=== PATIENT | female | born 1975 | race Hispanic/Latino ===

== ENCOUNTER 2023-01-02 16:13 | Emergency (ER) | payer BC, OTHER ==
--- OUTSIDE RECORDS SUMMARY | 2023-01-02 16:18 | XMS REPORT | Continuity of Care Document ---
:[address] [facility] t Address [address] [place] [address] Care Team Providers Name Role Phone Yanely Lopez Primary Care Physician Yanely Lopez Attending Clinician Unavailable DEV HAMILTON Attending Clinician Unavailable Doctor Unassigned, [place] Attending Clinician Unavailable Dev Hamilton MD Attending Clinician DANIEL DAMICO Attending Clinician Unavailable Daniel Damico MD Attending Clinician Unknown, Attending Attending Clinician Unavailable Arlen Hillman Attending Clinician Unavailable POLO PERALTA Attending Clinician Unavailable Provider, [facility] Attending Clinician Unavailable Polo Chan Attending Clinician Arlen Hillman Admitting Clinician Unavailable Payers Payer Name Policy Type Policy Number Effective Date Expiration Date S [place] Blue Cross 6 [id number] 2020 Common Spiri t Blue Shield of 00:00:00 [facility] Problems Condition Condition Condition Status Onset Resolution Last Treating Co mments Source Name Details Category Date Date Treatment Clinician Date No known No known Disease Unive rs active active ity of problems problems [facility] [id number] Routine Problem Commo n adult [facility] health - [facility] maintenanc [facility] [id number] Mixed Problem Common hyperlipid [facility] emia [facility] [id number] Uncontroll Problem Co mmon ed type 2 Spirit diabetes - [facility] mellitus [facility] hyperglyce [facility] Vitamin D Vitamin D Problem Com mon deficiency deficiency Sp melissa [facility] Morbid Morbid Problem Common obesity obesity [facility] Polycystic Polycystic Problem C ommon ovary ovary [facility] syndrome syndrome - [facility] Hypothyroi Hypothyroi Problem C ommon dism dism [facility] [id number] Back Problem Common strain, [facility] initial - [facility] encounter [facility] [id number] Dense Problem Common breast [facility] tissue on [facility] mammogram [facility] [id number] Vaginal Problem Commo n bleeding [facility] [id number] Irregular Problem Comm on menstrual Spirit bleeding - [facility] [id number] Symptomati Problem C ommon 101 c Spirit abdominal - [facility]I apron [facility] [id number] COVID-19 Problem Comm on [facility] [id number] Strain of Problem Com mon muscle, Spirit fascia and - [facility]I tendon of [facility] back, Medical initial Center encounter Type II Diabetes Problem Common diabetes mellitus Spirit mellitus type 2, - CHI well controlled [facility] [id number] Strain of Problem Comm on thoracic [facility] back - [facility] region [facility] [id number] Umbilical Problem Com mon hernia [facility] without - [facility]I obstructio [facility] without Medical gangrene Center Hypertrigl Hypertrigl Problem C ommon yceridemia yceridemia Sp melissa [facility] [id number] BMI Problem Common 40.0-44.9, Spirit adult - CHI [facility] [id number] Surveillan Problem Comm on ce for Spirit - [facility]I control, [facility] contracept Medica l [place] Allergies, Adverse Reactions, Alerts Allergy Allergy Status Severity Reaction(s) Onset Inactive Treating Comm ents Source Name Type Date Date Clinician No Known DA Active U 2019-12 [facility]ie 1[facility] [place] [facility] No Known DA Active U 2019-12 [facility] Allergie 1-29 [place] No Known DA Active U 2007- [facility] Contrast 8- [place] Allergie 00:00: d s 00 [facility] No Known DA Active U 2007-0 [facility] Drug 8- [place] Allergie 00:00: d s 00 [facility] No Known DA Active U 2007-0 [facility] Food 8- [place] Allergie 00:00: d s 00 [facility] No Known DA Active U 2007-0 [facility] Other 8- [place] Allergie 00:00: d s 00 [facility] No Known DA Active U 2007- [facility] Drug 2-05 [place] Intolera 00:00: d nces 00 Medical Center NO KNOWN Drug Active Univers ALLERGIE Class ity of S [facility] Social History Social Habit Start Date Stop Date Quantity Comments Source History of Common Spirit - Tobacco Use [facility] Sex Assigned At Common Sp melissa - [facility] Exposure to 2022-09-09 2022-09-19 Not sure University SARS-CoV-2 00:00:00 16:38:00 [facility] (event) Branch Alcohol intake 2022-09-19 2022-09-19 Current University 00:00:00 00:00:00 non-drinker of [facility] alcohol (finding) Branch Tobacco use and 2020-10-17 2020-10-17 Smokeless tobacco Un iversity of exposure 00:00:00 00:00:00 non-user [facility] Smoking Status Start Date Stop Date Source Never Smoker [facility] Medications Ordered Filled Start Stop Current Ordering Indication Dosage Frequency Signature Comments Components Source Medication Medication Date Date Medication? Clinician (SIG) Name Name Glimepiride Glimepiride 2021-12 No 1{table QD Glimepirid 4 MG 4 MG 0-26 t_with_ e 4 MG 00:00: break st_or_t he_firs t_main_ meal_of _the_da y} metFORMIN metFORMIN 2021-12 No 2{table BID metFORMIN HCl ER 500 HCl ER 500 0-26 t_with_ HCl ER 500 MG MG 00:00: evening MG 00 _meal} METFORMIN 2022-1 Yes 2 tabs by Uni vers 500 MG ORAL 0-19 mouth ity of TAB 16:57: twice [place] 15 daily Medical Branch GLIPIZIDE 2021-12 Yes once daily Un jessika ORAL 0-19 ity of 16:57: [place] 15 [facility] sitagliptin 2021-12 Yes 1 tablet Un jessika phos/metfor 0-19 with ity of min HCl 16:57: evening [place] (JANUMET XR 15 meal Medical ORAL) Branch insulin NPH 2021-12 Yes 40 units Un jessika and regular 0-19 ity of human 70-30 16:57: [place] (NOVOLIN 15 Medical 70/30 U-100 [place] INSULIN) 100 unit/mL (70-30) injection levothyroxi 2021-12 Yes TAKE 1 Univ ers ne 150 mcg 0-19 TABLET BY ity of tablet 16:57: MOUTH [place] 15 EVERY DAY Medical IN THE [place] MORNING FOR 90 DAYS METFORMIN 2021-12 Yes 2 tabs by Uni vers 500 MG ORAL 0-19 mouth ity of TAB 16:57: twice [place] 15 daily Medical Branch GLIPIZIDE 2021-12 Yes once daily Un jessika ORAL 0-19 ity of 16:57: [address] sitagliptin 2021-12 Yes 1 tablet Un jessika phos/metfor 0-19 with ity of min HCl 16:57: evening [place] (JANUMET XR 15 meal Medical ORAL) Branch insulin NPH 2021-12 Yes 40 units Un jessika and regular 0-19 ity of human 70-30 16:57: [place] (NOVOLIN 15 Medical 70/30 U-100 [place] INSULIN) 100 unit/mL (70-30) injection levothyroxi 2021-12 Yes TAKE 1 Univ ers ne 150 mcg 0-19 TABLET BY ity of tablet 16:57: MOUTH [place] 15 EVERY DAY Medical IN THE [place] MORNING FOR 90 DAYS METFORMIN 2021-12 Yes 2 tabs by Uni vers 500 MG ORAL 0-19 mouth ity of TAB 16:57: twice [place] 15 daily Medical Branch GLIPIZIDE 2021-12 Yes once daily Un jessika ORAL 0-19 ity of 16:57: [address] sitagliptin 2021-12 Yes 1 tablet Un jessika phos/metfor 0-19 with ity of min HCl 16:57: evening [place] (JANUMET XR 15 meal Medical ORAL) Branch insulin NPH 2021-12 Yes 40 units Un jessika and regular 0-19 ity of human 70-30 16:57: [place] (NOVOLIN 15 Medical 70/30 U-100 Branch INSULIN) 100 unit/mL (70-30) injection levothyroxi 2021-12 Yes TAKE 1 Univ ers ne 150 mcg 0-19 TABLET BY ity of tablet 16:57: MOUTH [place] 15 EVERY DAY Medical IN THE Branch MORNING FOR 90 DAYS METFORMIN 2021-12 Yes 2 tabs by Uni vers 500 MG ORAL 0-19 mouth ity of TAB 16:57: twice [place] 15 daily Medical Branch GLIPIZIDE 2021-12 Yes once daily Un jessika ORAL 0-19 ity of 16:57: [place] 15 Medical Branch sitagliptin 2021-12 Yes 1 tablet Un jessika phos/metfor 0-19 with ity of min HCl 16:57: evening [place] (JANUMET XR 15 meal Medical ORAL) Branch insulin NPH 2021-12 Yes 40 units Un jessika and regular 0-19 ity of human 70-30 16:57: [place] (NOVOLIN 15 Medical 70/30 U-100 [place] INSULIN) 100 unit/mL (70-30) injection levothyroxi 2021-12 Yes TAKE 1 Univ ers ne 150 mcg 0-19 TABLET BY ity of tablet 16:57: MOUTH [place] 15 EVERY DAY Medical IN THE [place] MORNING FOR 90 DAYS ibuprofen 2021-12 Yes [id number] 600mg Take 1 U nivers 600 mg 0-19 tablet by ity of tablet 00:00: mouth [place] 00 every 6 Medical (six) Branch hours as needed for Pain (scale 4-6) or Pain (scale 1-3). ibuprofen 2021-12 Yes [id number] 600mg Take 1 U nivers 600 mg 0-19 tablet by ity of tablet 00:00: mouth [place] 00 every 6 Medical (six) Branch hours as needed for Pain (scale 4-6) or Pain (scale 1-3). ibuprofen 2021-12 Yes [id number] 600mg Take 1 U nivers 600 mg 0-19 tablet by ity of tablet 00:00: mouth [place] 00 every 6 Medical (six) Branch hours as needed for Pain (scale 4-6) or Pain (scale 1-3). ibuprofen 2021-12 Yes [id number] 600mg Take 1 U nivers 600 mg 0-19 tablet by ity of tablet 00:00: mouth [place] 00 every 6 Medical (six) Branch hours as needed for Pain (scale 4-6) or Pain (scale 1-3). clindamycin 2021-12- No [id number] 300mg Take 1 Univers 300 mg 0-19 10-30 capsule by ity of capsule 00:00: 04:59 mouth 4 [place] 00 :00 (four) Medical times Branch daily for 10 days. traMADoL 50 2021-12- No [id number] 50mg Take 1 Uni vers mg tablet 0-19 10-27 tablet by ity of 00:00: 04:59 mouth [place] 00 :00 every 6 Medical (six) Branch hours as needed for Pain (scale 7-10) for up to 7 days. Indication s: acute pain fenofibrate Yes TAKE 1 Univ ers 145 mg 7-28 TABLET BY ity of tablet 00:00: MOUTH [place] 00 EVERY DAY Medical FOR 90 Branch DAYS fenofibrate Yes TAKE 1 Univ ers 145 mg 7-28 TABLET BY ity of tablet 00:00: MOUTH [place] 00 EVERY DAY Medical FOR 90 Branch DAYS fenofibrate 0 Yes TAKE 1 Univ ers 145 mg 7-28 TABLET BY ity of tablet 00:00: MOUTH [place] 00 EVERY DAY Medical FOR 90 Branch DAYS fenofibrate 0 Yes TAKE 1 Univ ers 145 mg 7-28 TABLET BY ity of tablet 00:00: MOUTH [place] 00 EVERY DAY Medical FOR 90 Branch DAYS TRULICITY 3 Yes ONE Univer s mg/0.5 mL 7-25 INJECTION ity o f PnIj 00:00: ONCE A [place] WEEK Medical SUBCUTANEO Branch USLY ONCE A WEEK SUBCUTANEO US 30 DAYS TRULICITY 3 Yes ONE Univer s mg/0.5 mL 7-25 INJECTION ity o f PnIj 00:00: ONCE A [place] WEEK Medical SUBCUTANEO Branch USLY ONCE A WEEK SUBCUTANEO US 30 DAYS TRULICITY 3 2021- Yes ONE Univer s mg/0.5 mL 7-25 INJECTION ity o f PnIj 00:00: ONCE A [place] WEEK Medical SUBCUTANEO Branch USLY ONCE A WEEK SUBCUTANEO US 30 DAYS TRULICITY 3 Yes ONE Univer s mg/0.5 mL 7-25 INJECTION ity o f PnIj 00:00: ONCE A [place] 00 WEEK Medical SUBCUTANEO Branch USLY ONCE A WEEK SUBCUTANEO US 30 DAYS Fluconazole Fluconazole 2021- No 1{table QD Fluconazol 150 MG 150 MG 18 05-23 t} e 150 MG 00:00: 00:00 00 :00 NovoLIN N NovoLIN N 2021-0 No BID NovoLIN N 100 UNIT/ML 100 UNIT/ML 12-22 100 00:00: UNIT/ML 00 NovoLIN N NovoLIN N 2021-0 No BID NovoLIN N 100 UNIT/ML 100 UNIT/ML 12-22 100 00:00: UNIT/ML 00 NovoLIN N NovoLIN N 2021-0 No BID NovoLIN N 100 UNIT/ML 100 UNIT/ML 12-22 100 00:00: UNIT/ML 00 Janumet XR Janumet XR 2020-12 No 1{table QD Janumet XR 100-1000 MG 100-1000 MG 0-06 t_with_ 100-1000 00:00: evening MG 00 _meal} Janumet XR Janumet XR 2020-12 No 1{table QD Janumet XR 100-1000 MG 100-1000 MG 0-06 t_with_ 100-1000 00:00: evening MG 00 _meal} Fenofibrate Fenofibrate No 1{table QD Fenofibrat 145 MG 145 MG 8-05 t} e 145 MG 00:00: 00 Fenofibrate Fenofibrate 2020-0 No 1{table QD Fenofibrat 145 MG 145 MG 8-05 t} e 145 MG 00:00: 00 Fenofibrate Fenofibrate 2020-0 No 1{table QD Fenofibrat 145 MG 145 MG 8-05 t} e 145 MG 00:00: 00 Fenofibrate Fenofibrate 2020-0 No 1{table QD Fenofibrat 145 MG 145 MG 8-05 t} e 145 MG 00:00: 00 Albuterol Albuterol No 1{puff_ 6xD Albuterol Sulfate HFA Sulfate HFA 4-02 as_need Sulfate 108 (90 108 (90 00:00: ed} HFA 108 Base) Base) 00 (90 Base) MCG/ACT MCG/ACT MCG/ACT Albuterol Albuterol 2021-0 No 1{puff_ 6xD Albuterol Sulfate HFA Sulfate HFA 4-02 as_need Sulfate 108 (90 108 (90 00:00: ed} HFA 108 Base) Base) 00 (90 Base) MCG/ACT MCG/ACT MCG/ACT Albuterol Albuterol 2020-0 No 1{puff_ 6xD Albuterol Sulfate HFA Sulfate HFA 4-02 as_need Sulfate 108 (90 108 (90 00:00: ed} HFA 108 Base) Base) 00 (90 Base) MCG/ACT MCG/ACT MCG/ACT Albuterol Albuterol 2020-0 No 1{puff_ 6xD Albuterol Sulfate HFA Sulfate HFA 4-02 as_need Sulfate 108 (90 108 (90 00:00: ed} HFA 108 Base) Base) 00 (90 Base) MCG/ACT MCG/ACT MCG/ACT Albuterol Albuterol 2020-0 No 1{puff_ 6xD Albuterol Sulfate HFA Sulfate HFA 4-02 as_need Sulfate 108 (90 108 (90 00:00: ed} HFA 108 Base) Base) 00 (90 Base) MCG/ACT MCG/ACT MCG/ACT Albuterol Albuterol 2020-0 No 1{puff_ 6xD Albuterol Sulfate HFA Sulfate HFA 4-02 as_need Sulfate 108 (90 108 (90 00:00: ed} HFA 108 Base) Base) 00 (90 Base) MCG/ACT MCG/ACT MCG/ACT Albuterol Albuterol 2020-0 No 1{puff_ 6xD Albuterol Sulfate HFA Sulfate HFA 4-02 as_need Sulfate 108 (90 108 (90 00:00: ed} HFA 108 Base) Base) 00 (90 Base) MCG/ACT MCG/ACT MCG/ACT Albuterol Albuterol 2020-0 No 1{puff_ 6xD Albuterol Sulfate HFA Sulfate HFA 4-02 as_need Sulfate 108 (90 108 (90 00:00: ed} HFA 108 Base) Base) 00 (90 Base) MCG/ACT MCG/ACT MCG/ACT Albuterol Albuterol 2020-0 No 1{puff_ 6xD Albuterol Sulfate HFA Sulfate HFA 4-02 as_need Sulfate 108 (90 108 (90 00:00: ed} HFA 108 Base) Base) 00 (90 Base) MCG/ACT MCG/ACT MCG/ACT Albuterol Albuterol No 1{puff_ 6xD Albuterol Sulfate HFA Sulfate HFA 4-02 as_need Sulfate 108 (90 108 (90 00:00: ed} HFA 108 Base) Base) 00 (90 Base) MCG/ACT MCG/ACT MCG/ACT Albuterol Albuterol No 1{puff_ 6xD Albuterol Sulfate HFA Sulfate HFA 4-02 as_need Sulfate 108 (90 108 (90 00:00: ed} HFA 108 Base) Base) 00 (90 Base) MCG/ACT MCG/ACT MCG/ACT Albuterol Albuterol No 1{puff_ 6xD Albuterol Sulfate HFA Sulfate HFA 4-02 as_need Sulfate 108 (90 108 (90 00:00: ed} HFA 108 Base) Base) 00 (90 Base) MCG/ACT MCG/ACT MCG/ACT Xigduo XR Xigduo XR 2019-12 No QD Xigduo XR 10-1000 MG 10-1000 MG 2-06 10-1000 MG 00:00: 00 Xigduo XR Xigduo XR 2019-12 No QD Xigduo XR 10-1000 MG 10-1000 MG 2-06 10-1000 MG 00:00: 00 METFORMIN 2019-12 Yes 2 tabs by Uni vers 500 MG ORAL 1-16 mouth ity of TAB 23:58: twice [address] GLIPIZIDE 2019-12 Yes once daily Un jessika ORAL 1-16 ity of 23:58: [address] METFORMIN 2019-12 Yes 2 tabs by Uni vers 500 MG ORAL 1-16 mouth ity of TAB 23:58: twice [place] [address] daily [facility] GLIPIZIDE 2019-12 Yes once daily Un jessika ORAL 1-16 ity of 23:58: [address] METFORMIN 2019-12 Yes 2 tabs by Uni vers 500 MG ORAL 1-16 mouth ity of TAB 17:58: twice [address] GLIPIZIDE 2019-12 Yes once daily Un jessika ORAL 1-16 ity of 17:58: [address] Vitamin D Vitamin D 2020-0 2020- No Yanely 1 capsule Common (Ergocalcif (Ergocalcif 629 09-27 [place] Spirit gilmer) gilmer) 00:00: 00:00 - CHI 00 :00 [facility] Norlyda Norlyda No 1{table QD Norlyda 0.35 0.35 t} 0.35 Levothyroxi Levothyroxi No QD Levothyrox ne Sodium ne Sodium ine Sodium 150 MCG 150 MCG 150 MCG Tresiba Tresiba No Tresiba FlexTouch FlexTouch FlexTouch 200 UNIT/ML 200 UNIT/ML 200 UNIT/ML Norethindro Norethindro No Norethindr ne 0.35 MG ne 0.35 MG one 0.35 MG Tresiba Tresiba No QD Tresiba FlexTouch FlexTouch FlexTouch 200 UNIT/ML 200 UNIT/ML 200 UNIT/ML Norethindro Norethindro No Norethindr ne 0.35 MG ne 0.35 MG one 0.35 MG Levothyroxi Levothyroxi No QD Levothyrox ne Sodium ne Sodium ine Sodium 150 MCG 150 MCG 150 MCG Norlyda Norlyda No 1{table QD Norlyda 0.35 0.35 t} 0.35 Norlyda Norlyda No 1{table QD Norlyda 0.35 0.35 t} 0.35 Levothyroxi Levothyroxi No Levothyrox ne Sodium ne Sodium ine Sodium 150 MCG 150 MCG 150 MCG Tresiba Tresiba No QD Tresiba FlexTouch FlexTouch FlexTouch 200 UNIT/ML 200 UNIT/ML 200 UNIT/ML Norethindro Norethindro No Norethindr ne 0.35 MG ne 0.35 MG one 0.35 MG Janumet XR Janumet XR No 1{table QD Janumet XR 100-1000 MG 100-1000 MG t_with_ 100-1000 evening MG _meal} Norlyda Norlyda No 1{table QD Norlyda 0.35 0.35 t} 0.35 Marilu 0.35 Marilu 0.35 No Marilu 0.35 MG MG MG Fenofibrate Fenofibrate No 1{table QD Fenofibrat 145 MG 145 MG t} e 145 MG Norethindro Norethindro No Norethindr ne 0.35 MG ne 0.35 MG one 0.35 MG Levothyroxi Levothyroxi No Levothyrox ne Sodium ne Sodium ine Sodium 150 MCG 150 MCG 150 MCG Tresiba Tresiba No QD Tresiba FlexTouch FlexTouch FlexTouch 200 UNIT/ML 200 UNIT/ML 200 UNIT/ML Norlyda Norlyda No 1{table QD Norlyda 0.35 0.35 t} 0.35 Tresiba Tresiba No QD Tresiba FlexTouch FlexTouch FlexTouch 200 UNIT/ML 200 UNIT/ML 200 UNIT/ML Janumet XR Janumet XR No 1{table QD Janumet XR 100-1000 MG 100-1000 MG t_with_ 100-1000 evening MG _meal} Marilu 0.35 Marilu 0.35 No Marilu 0.35 MG MG MG NovoLIN NovoLIN No BID NovoLIN 70/30 70/30 70/30 (70-30) 100 (70-30) 100 (70-30) UNIT/ML UNIT/ML 100 UNIT/ML Norethindro Norethindro No Norethindr ne 0.35 MG ne 0.35 MG one 0.35 MG Fenofibrate Fenofibrate No 1{table QD Fenofibrat 145 MG 145 MG t} e 145 MG Levothyroxi Levothyroxi No Levothyrox ne Sodium ne Sodium ine Sodium 150 MCG 150 MCG 150 MCG Trulicity 3 Trulicity 3 No Trulicity MG/0.5ML MG/0.5ML 3 MG/0.5ML Norlyda Norlyda No 1{table QD Norlyda 0.35 0.35 t} 0.35 Tresiba Tresiba No QD Tresiba FlexTouch FlexTouch FlexTouch 200 UNIT/ML 200 UNIT/ML 200 UNIT/ML Janumet XR Janumet XR No 1{table QD Janumet XR 100-1000 MG 100-1000 MG t_with_ 100-1000 evening MG _meal} Marilu 0.35 Marilu 0.35 No Marilu 0.35 MG MG MG NovoLIN NovoLIN No BID NovoLIN 70/30 70/30 70/30 (70-30) 100 (70-30) 100 (70-30) UNIT/ML UNIT/ML 100 UNIT/ML Norethindro Norethindro No Norethindr ne 0.35 MG ne 0.35 MG one 0.35 MG Fenofibrate Fenofibrate No 1{table QD Fenofibrat 145 MG 145 MG t} e 145 MG Levothyroxi Levothyroxi No Levothyrox ne Sodium ne Sodium ine Sodium 150 MCG 150 MCG 150 MCG Trulicity 3 Trulicity 3 No Trulicity MG/0.5ML MG/0.5ML 3 MG/0.5ML Fenofibrate Fenofibrate No 1{table QD Fenofibrat 145 MG 145 MG t} e 145 MG Levothyroxi Levothyroxi No Levothyrox ne Sodium ne Sodium ine Sodium 150 MCG 150 MCG 150 MCG Trulicity 3 Trulicity 3 No Trulicity MG/0.5ML MG/0.5ML 3 MG/0.5ML Marilu 0.35 Marilu 0.35 No Marilu 0.35 MG MG MG NovoLIN NovoLIN No BID NovoLIN 70/30 70/30 70/30 (70-30) 100 (70-30) 100 (70-30) UNIT/ML UNIT/ML 100 UNIT/ML Janumet XR Janumet XR No 1{table QD Janumet XR 100-1000 MG 100-1000 MG t_with_ 100-1000 evening MG _meal} Tresiba Tresiba No QD Tresiba FlexTouch FlexTouch FlexTouch 200 UNIT/ML 200 UNIT/ML 200 UNIT/ML Levothyroxi Levothyroxi No Levothyrox ne Sodium ne Sodium ine Sodium 150 MCG 150 MCG 150 MCG Marilu 0.35 Marilu 0.35 No Marilu 0.35 MG MG MG Tresiba Tresiba No QD Tresiba FlexTouch FlexTouch FlexTouch 200 UNIT/ML 200 UNIT/ML 200 UNIT/ML Trulicity 3 Trulicity 3 No Trulicity MG/0.5ML MG/0.5ML 3 MG/0.5ML Fenofibrate Fenofibrate No 1{table QD Fenofibrat 145 MG 145 MG t} e 145 MG NovoLIN NovoLIN No BID NovoLIN 70/30 70/30 70/30 (70-30) 100 (70-30) 100 (70-30) UNIT/ML UNIT/ML 100 UNIT/ML Janumet XR Janumet XR No 1{table QD Janumet XR 100-1000 MG 100-1000 MG t_with_ 100-1000 evening MG _meal} Levothyroxi Levothyroxi No Levothyrox ne Sodium ne Sodium ine Sodium 150 MCG 150 MCG 150 MCG Tresiba Tresiba No QD Tresiba FlexTouch FlexTouch FlexTouch 200 UNIT/ML 200 UNIT/ML 200 UNIT/ML Fenofibrate Fenofibrate No 1{table QD Fenofibrat 145 MG 145 MG t} e 145 MG Trulicity 3 Trulicity 3 No Trulicity MG/0.5ML MG/0.5ML 3 MG/0.5ML Janumet XR Janumet XR No 1{table QD Janumet XR 100-1000 MG 100-1000 MG t_with_ 100-1000 evening MG _meal} NovoLIN NovoLIN No BID NovoLIN 70/30 70/30 70/30 (70-30) 100 (70-30) 100 (70-30) UNIT/ML UNIT/ML 100 UNIT/ML Marilu 0.35 Marilu 0.35 No Marilu 0.35 MG MG MG Levothyroxi Levothyroxi No QD Levothyrox ne Sodium ne Sodium ine Sodium 150 MCG 150 MCG 150 MCG Tresiba Tresiba No QD Tresiba FlexTouch FlexTouch FlexTouch 200 UNIT/ML 200 UNIT/ML 200 UNIT/ML Xigduo XR Xigduo XR No 1{table QD Xigduo XR 10-1000 MG 10-1000 MG t} 10-1000 MG Antara 90 Antara 90 No 1{capsu QD Antara 90 MG MG le} MG Norlyda Norlyda No 1{table QD Norlyda 0.35 0.35 t} 0.35 Antara 90 Antara 90 No 1{capsu QD Antara 90 MG MG le} MG Norlyda Norlyda No 1{table QD Norlyda 0.35 0.35 t} 0.35 Xigduo XR Xigduo XR No 1{table QD Xigduo XR 10-1000 MG 10-1000 MG t} 10-1000 MG Tresiba Tresiba No QD Tresiba FlexTouch FlexTouch FlexTouch 200 UNIT/ML 200 UNIT/ML 200 UNIT/ML Levothyroxi Levothyroxi No QD Levothyrox ne Sodium ne Sodium ine Sodium 150 MCG 150 MCG 150 MCG Xigduo XR Xigduo XR No 1{table QD Xigduo XR 10-1000 MG 10-1000 MG t} 10-1000 MG Norlyda Norlyda No 1{table QD Norlyda 0.35 0.35 t} 0.35 Levothyroxi Levothyroxi No QD Levothyrox ne Sodium ne Sodium ine Sodium 150 MCG 150 MCG 150 MCG Tresiba Tresiba No QD Tresiba FlexTouch FlexTouch FlexTouch 200 UNIT/ML 200 UNIT/ML 200 UNIT/ML Xigduo XR Xigduo XR No 1{table QD Xigduo XR 10-1000 MG 10-1000 MG t} 10-1000 MG Trulicity 3 Trulicity 3 2020- No Trulicity MG/0.5ML MG/0.5ML 11-03 3 MG/0.5ML 00:00 :00 Trulicity 3 Trulicity 3 2020- No Trulicity MG/0.5ML MG/0.5ML 11-03 3 MG/0.5ML 00:00 :00 Trulicity 3 Trulicity 3 2020- No Trulicity MG/0.5ML MG/0.5ML 11-03 3 MG/0.5ML 00:00 :00 Trulicity 3 Trulicity 3 2020- No Trulicity MG/0.5ML MG/0.5ML 11-03 3 MG/0.5ML 00:00 :00 Vital Signs Vital Name Observation Time Observation Value Comments Source Systolic blood 2022-09-19 21:53:00 149 mm[Hg] Univer sity [facility] Diastolic blood 2022-09-19 21:53:00 95 [facility]Hg[facility] 2022-09-19 21:53:00 93 /min [facility] Body temperature 2022-09-19 21:53:00 36.67 [facility] Respiratory rate 2022-09-19 21:53:00 18 /min [facility] Body height 2022-09-19 21:53:00 172.7 cm [facility] Body weight 2022-09-19 21:53:00 125.845 kg [facility] BMI 2022-09-19 21:53:00 42.18 kg/m2 [facility] Oxygen saturation in 2022-09-19 21:53:00 98 /min University Arterial blood by [facility] Pulse oximetry Branch height 2022-04-18 16:40:00 68 [in_i] [facility] weight 2022-04-18 16:40:00 293.6 [lb_av] [facility] temperature 2022-04-18 16:40:00 98.2 [degF] [facility] bmi 2022-04-18 16:40:00 44.64 kg/m2 [facility] oximetry 2022-04-18 16:40:00 97 % [facility] respiratory rate 2022-04-18 16:40:00 18 /min Comm on [facility] blood pressure 2022-04-18 16:40:00 134 mm[Hg] Common [facility] - systolic [facility] blood pressure 2022-04-18 16:40:00 55 mm[Hg] Common [facility] - diastolic [facility] height 2021-12-06 16:20:00 68 [in_i] [facility] weight 2021-12-06 16:20:00 305 [lb_av] [facility] bmi 2021-12-06 16:20:00 46.37 kg/m2 [facility] height 2021-09-06 16:20:00 68 [in_i] [facility] weight 2021-09-06 16:20:00 302 [lb_av] [facility] temperature 2021-09-06 16:20:00 98.1 [degF] [facility] bmi 2021-09-06 16:20:00 45.91 kg/m2 [facility] oximetry 2021-09-06 16:20:00 99 % [facility] respiratory rate 2021-09-06 16:20:00 16 /min Comm on [facility] blood pressure 2021-09-06 16:20:00 133 mm[Hg] Common [facility] - systolic [facility] blood pressure 2021-09-06 16:20:00 55 mm[Hg] Common [facility] - diastolic [facility] height 2021-06-06 10:40:00 68 [in_i] [facility] weight 2021-06-06 10:40:00 297.8 [lb_av] Common [facility] temperature 2021-06-06 10:40:00 97.6 [degF] [facility] bmi 2021-06-06 10:40:00 45.28 kg/m2 [facility] oximetry 2021-06-06 10:40:00 98 % [facility] respiratory rate 2021-06-06 10:40:00 18 /min Comm on [facility] blood pressure 2021-06-06 10:40:00 139 mm[Hg] Common [facility] - systolic [facility] blood pressure 2021-06-06 10:40:00 68 mm[Hg] Common [facility] - diastolic [facility] Systolic blood 2020-10-18 00:01:00 158 mm[Hg] Univer sity of [facility] Diastolic blood 2020-10-18 00:01:00 109 mm[Hg] Unive rsity of pressure [facility] Heart rate 2020-10-17 23:57:00 101 /min [facility] Body temperature 2020-10-17 23:57:00 37.22 [facility]ita [facility] 2020-10-17 23:57:00 20 /min [facility] Body height 2020-10-17 23:57:00 172.7 cm [facility] Body weight 2020-10-17 23:57:00 130.182 kg [facility] BMI 2020-10-17 23:57:00 43.64 kg/m2 [facility] Oxygen saturation in 2020-10-17 23:57:00 97 /min University of Arterial blood by [facility] Pulse oximetry Branch Systolic blood 2020-10-18 00:01:00 158 mm[Hg] Univer sity of pressure [facility] Diastolic blood 2020-10-18 00:01:00 109 mm[Hg] Unive rsity of pressure [facility] Heart rate 2020-10-17 23:57:00 101 /min Universi ty [facility] Body temperature 2020-10-17 23:57:00 37.22 Lalita [facility] Respiratory rate 2020-10-17 23:57:00 20 /min [facility] Body height 2020-10-17 23:57:00 172.7 cm Universi ty of [facility] Body weight 2020-10-17 23:57:00 130.182 kg Universi ty of [facility] BMI 2020-10-17 23:57:00 43.64 [facility] 2020-10-17 23:57:00 97 /min University Arterial blood by [facility] Pulse oximetry Branch Procedures Procedure Date / Time Performed Performing Clinician [facility] e EXTERNAL PROVIDER 2022-11-22 06:01:00 Doctor Unassigned, No [facility] RECORDS Name Medical Branch REFERRAL- 2022-10-22 06:01:00 Doctor Unassigned, No [facility] REQUEST/RESPONSE Name Medical [place] ASSIGNMENT OF BENEFITS 2022-09-19 21:40:47 Doctor Unassigned, No [facility] Name Medical [place] Encounters Start End Encounter Admission Attending Care Care Encounter Source Date/Time Date/Time Type Type Clinicians Facility Department ID 2022-12-28 Outpatient [place], STRAVINDERLC STLMLC [id number] Common 09:59:00 Yanely [address]39 [facility] 2022-11-20 Outpatient Schoenchen, STRAVINDERLC STLMLC [id number] Common 09:33:00 Yanely [facility] 2022-10-08 Outpatient Jessica, STRAVINDERLC STLMLC [id number] Common 11:56:00 Yanely 27832 [facility] 2022-04-18 Outpatient Jessica, STRAVINDERLC STLMLC [id number] Common 11:37:01 Yanely [facility] 2021-12-27 Outpatient Sch[place], STLMLC STLMLC [id number] Common 13:56:29 Yanely [facility] 2021-12-27 Outpatient [place], STLMLC STLMLC [id number] Common 13:23:22 Yanely 36088 [facility] 2021-12-27 Outpatient [place], STLMLC STLMLC [id number] Common 12:53:47 Yanely 32952 [facility] 2021-12-27 Outpatient [place], STLMLC STLMLC [id number] Common 12:16:21 Yanely 72135 [facility] 2021-12-27 Outpatient [place], STLMLC STLMLC [id number] Common 11:49:35 Yanely 94189 [facility] 2021-12-27 Outpatient [place], STLMLC STLMLC [id number] Common 11:27:58 Yanely 78174 [facility] 2021-12-27 Outpatient [place], STLMLC STLMLC [id number] Common 11:12:28 Yanely 26410 [facility] 2021-12-27 Outpatient [place], STLMLC STLMLC [id number] Common 11:09:08 Yanely 99537 [facility] 2022-11-22 2022-11-22 Orders Doctor GONZALEZ [id number] Univers 00:00:00 00:00:00 Only Unassigned, JUICE 350.1.13.10 ity of [place] [facility] 4.2.7.2.686 [place] as [phone] [facility] christine 009 Branch 2022-10-22 2022-10-22 Orders Doctor GONZALEZ [id number] Univers 00:00:00 00:00:00 Only Unassigned, JUICE 350.1.13.10 ity of [place] [facility] 4.2.7.2.686 [place] as [phone] [facility] christine 009 Branch 2022-10-04 2022-10-04 Telephone INDIO Hamilton2.840.114 [id number] Univers 00:00:00 00:00:00 [facility] 350.1.13.10 it y of [place] 4.2.7.2.686 [place] as JERI?BLEA [phone] [facility] [address] MEDICAL OFFICE [facility]ILDING 2022-09-24 2022-09-24 (TEL) STLC STLC [id number] Co mmon 00:00:00 00:00:00 [facility] 2022-09-19 2022-09-19 Outpatient R [facility] [id number] Univers 16:20:00 17:17:14 DANIEL ity of [facility] 2022-09-19 2022-09-19 Urgent Daniel Damico [facility] [id number] Univers 16:20:00 17:17:14 Care Unknown, Attending HEALTH 350.1.13.10 ity of [place] 4.2.7.2.686 [place] as JERI?BLEA [phone] [facility] [address] MEDICAL OFFICE BUILDING 2022-09-19 2022-09-19 Orders Doctor CARLOS [id number] Univers 00:00:00 00:00:00 Only Unassigned, JUICE 350.1.13.10 ity of [place] [facility] 4.2.7.2.686 [place] as [phone] [address] 2022-09-11 2022-09-11 (TEL) STLC STLC [id number] Co mmon 00:00:00 00:00:00 [facility] 2022-04-18 2022-04-18 OFFICE STLC STLC [id number] Co mmon 00:00:00 00:00:00 VISIT EST Spir it PT LEVEL 3 - [facility] 2021-12-26 2021-12-26 (TEL) STLC STLMLC [id number] Co mmon 00:00:00 00:00:00 [facility] 2021-12-21 2021-12-21 (TEL) STLC STLC [id number] Co mmon 00:00:00 00:00:00 [facility] 2021-12-06 2021-12-06 OFFICE STLMLC STLMLC [id number] Co mmon 00:00:00 00:00:00 VISIT [facility] PT - CHI LEVEL 4 [facility] 2021-10-18 2021-10-18 (TEL) STLMLC STLMLC [id number] Co mmon 00:00:00 00:00:00 [facility] 2021-09-06 2021-09-06 OFFICE STLMLC STLMLC [id number] Co mmon 00:00:00 00:00:00 VISIT [facility] PT - CHI LEVEL 4 [facility] 2021-09-01 2021-09-01 (TEL) STLMLC STLMLC [id number] Co mmon 00:00:00 00:00:00 [facility] 2021-07-06 2021-07-06 (TEL) STLMLC STLMLC [id number] Co mmon 00:00:00 00:00:00 [facility] 2021-06-06 2021-06-06 OFFICE STLMLC STLMLC [id number] Co mmon 00:00:00 00:00:00 VISIT [facility] PT - CHI [facility] 4 [facility] 2021-05-12 2021-05-12 (TEL) STLMLC STLMLC [id number] Co mmon 00:00:00 00:00:00 [facility] 2021-03-22 2021-03-22 Outpatient STLMLC STLMLC [id number] Common 00:00:00 00:00:00 [facility] 2021-03-03 2021-03-03 Outpatient STLMLC STLMLC [id number] Common 00:00:00 00:00:00 [facility] 2021-02-20 2021-02-20 Outpatient STLMLC STLMLC [id number] Common 00:00:00 00:00:00 [facility] 2020-11-30 2020-11-30 Outpatient STLMLC STLMLC [id number] Common 00:00:00 00:00:00 [facility] 2020-10-29 2020-11-02 Inpatient EM SHARRON HillmanPM INTE.02 [id number] [facility] 22:32:00 01:19:45 Oladipo 31 [facility] 2020-10-28 2020-10-28 Outpatient STLMLC STLMLC [id number] Common 00:00:00 00:00:00 [facility] 2020-10-17 2020-10-17 Outpatient R TY [facility] [id number] Univers 19:00:00 19:00:00 RANIA ity [facility] 2020-10-17 2020-10-17 Urgent Provider, [facility] [id number] 17:38:37 17:58:37 [facility] 350.1.13.10 Care [place] 4.2.7.2.686 Professio [phone] [address] 2020-10-17 2020-10-17 Urgent Provider, [facility] [id number] [facility] 17:38:37 17:58:37 Care Ty, [facility] 350.1.13.10 ity of [place] 4.2.7.2.686 [place] as Professio [phone] [address] 2020-10-17 2020-10-17 Letter Doctor CARLOS 1.2.840.114 [id number] Univers 00:00:00 00:00:00 (Out) Unassigned, JUICE 350.1.13.10 ity of [place] [facility] 4.2.7.2.686 [place] as [phone] [address] 2020-10-17 2020-10-17 Letter Doctor CARLOS 1.2.840.114 [id number] 00:00:00 00:00:00 (Out) Unassigned, JUICE 350.1.13.10 [place] [facility] 4.2.7.2.686 [phone] [facility] 2020-08-31 2020-08-31 Outpatient STLMLC STLMLC [id number] Common 00:00:00 00:00:00 [facility] 2020-08-24 2020-08-24 Outpatient STLMLC STLMLC [id number] Common 00:00:00 00:00:00 [facility] 2020-05-30 2020-05-30 [facility] [id number] Common 00:04:00 00:04:[address] [facility] 2020-05-24 2020-05-24 [facility] [id number] Common 09:40:00 09:40:[address] [facility] 2020-01-21 2020-01-21 [facility] [id number] Common 15:00:00 15:00:[address] [facility] 2019-12-21 2019-12-21 [facility]patient [facility] [id number] Common 19:31:00 19:31:[address] [facility] 2019-11-10 2019-11-10 [facility] [id number] Common 16:40:00 16:40:[address] [facility] 2019-10-15 2019-10-15 [facility] [id number] Common 15:34:00 15:34:[address] [facility] 2019-10-13 2019-10-13 Out[facility] [id number] Common 16:40:00 16:40:[address] [facility] 2019-09-01 2019-09-01 Out[facility] [id number] Common 11:00:00 11:00:[address] [facility] 2019-06-09 2019-06-09 Outpatient [facility] [id number] Common 10:00:00 10:00:[address] [facility] 2019-06-05 2019-06-05 Out[facility] [id number] Common 14:58:00 14:58:[address] [facility] 2019-06-05 2019-06-05 Outpatient Pamela Santiagot [id number] Common 14:51:00 14:51:00 [facility] [address] [facility] 2019-05-20 2019-05-20 Outpatient Pamela Santiagot [id number] Common 16:00:00 16:00:00 [facility] [address] [facility] Results Test Description Test Time Test Comments Results Result Comments Source HEMOGLOBIN A1C 2021-06-06 00:00:00 Test Item Value Reference Range Interpretation Comme nts A1C (test code = 4548-4) 9.7 % GLUCOSE BEDSIDE [id number] 12:24:00 Test Item Value Reference Range Interpretation Comments GLUCOSE BEDSIDE TESTING (test code 232 mg/dL 70-110 H = GLUBED) GLUCOSE BEDSIDE [id number] 08:06:00 Test Item Value Reference Range Interpretation Comments GLUCOSE BEDSIDE TESTING (test code 191 mg/dL 70-110 H = GLUBED) C REACTIVE [id number] 07:50:00 Test Item Value Reference Range Interpretation Comments C REACTIVE PROTEIN (test code = 2.980 MG/DL 0.000-0.3 H CRP) BASIC METABOLIC [id number] 07:42:00 Test Item Value Reference Range Interpretation Comments SODIUM (test code = NA) 142 mmol/L 134-147 N POTASSIUM (test code = 3.7 mmol/L 3.4-5.0 N K) CHLORIDE (test code = 108 mmol/L 100-108 N CL) CARBON DIOXIDE (test 26 mmol/L 21-32 N code = CO2) ANION GAP (test code = 8.0 GAP calc 4.0-15.0 N GAP) GLUCOSE (test code = 221 MG/DL 70-110 H GLU) BLOOD UREA NITROGEN 14 MG/DL 7-18 N (test code = BUN) GLOMERULAR FILTRATION >=60 max estimate >60 RATE (test code = GFR) estGFR CREATININE (test code = 0.5 MG/DL 0.6-1.0 L CREAT) CALCIUM (test code = CA) 9.1 MG/DL 8.5-10.1 N [id number] 07:42:00 Test Item Value Reference Range Interpretation Comments FERRITIN (test code = DEVANG) 83.1 NG/ML 3.0-105.0 N CBC W/AUTO [id number] 07:22:00 Test Item Value Reference Range Interpretation Comments WHITE BLOOD CELL (test code = 7.8 K/mm3 3.5-11.0 N WBC) RED BLOOD CELL (test code = 5.01 M/mm3 4.70-6.10 N RBC) HEMOGLOBIN (test code = HGB) 13.3 G/DL 10.4-14.9 N HEMATOCRIT (test code = HCT) 42.4 % 31.5-44.1 N MEAN CELL VOLUME (test code = 84.6 Fl 84.5-98.6 N MCV) MEAN CELL HGB (test code = MCH) 26.5 pg 27.0-34.2 L MEAN CELL HGB CONCETRATION 31.4 G/DL 31.5-34.0 L (test code = MCHC) RED CELL DISTRIBUTION WIDTH 13.2 SD 11.5-14.5 N (test code = RDW) PLATELET COUNT (test code = 330 K/mm3 150-450 N PLT) MEAN PLATELET VOLUME (test code 10.80 fL 7.0-10.5 H = MPV) NEUTROPHIL % (test code = NT%) 67.6 % 40-76 IMMATURE GRANULOCYTE % (test 2.7 % 0.0-5.0 N code = IG%) LYMPHOCYTE % (test code = LY%) 20.5 % 20.5-51.1 N MONOCYTE % (test code = MO%) 7.4 % 1.7-9.3 N EOSINOPHIL % (test code = EO%) 1.0 % 0.0-6.0 N BASOPHIL % (test code = BA%) 0.8 % 0.0-2.0 N NUCLEATED RBC % (test code = 0.0 /100WBC% 0.0-1.0 N NRBC%) NEUTROPHIL # (test code = NT#) 5.3 K/mm3 1.8-7.6 N IMMATURE GRANULOCYTE # (test 0.21 x10 3/uL 0.00-0.03 H code = IG#) LYMPHOCYTE # (test code = LY#) 1.6 K/mm3 0.6-3.2 N MONOCYTE # (test code = MO#) 0.6 K/mm3 0.3-1.1 N EOSINOPHIL # (test code = EO#) 0.1 K/mm3 0.0-0.4 N BASOPHIL # (test code = BA#) 0.1 K/mm3 0.0-0.1 N NUCLEATED RBC # (test code = 0.0 K/mm3 0.0-0.1 N NRBC#) MANUAL DIFF REQUIRED (test code NO DIFF/SCN CRITERIA = MDIFF) - XR CHEST 1 [id number] 07:12:00 [facility] 1975 Sex: F Name: DANIEL PEGUERO [facility] : 1975 Age/S: 44 / F [id number] Unit #: [id number] Loc: [place] [address] Phys: Hali Jerome MD Acct: [id number] Dis Date: Status: ADM IN PHONE #: [phone] Exam Date: 10/31/2020 0420 FAX #: Reason: COVID PNA EXAMS: CPT: [id number] XR CHEST 1 V 75095 Fluoro Time: DAP (Gy m2): Air Kerma (mGy): Site ID: [id number] HISTORY: Covid COMPARISON: None FINDINGS: Mid to upper lung doyle are clear, mild patchy bilateral medial lung base alveolar infiltrates are combined with mild streaky atelectasis. No appreciable pneumothorax or significant pleural effusion demonstrated. The heart size is within normal limits. Osseous structures are unremarkable. IMPRESSION: Mild patchy bilateral medial lung base alveolar infiltrates are combined with mild streaky atelectasis at 0712 Reported and signed by: Boom Watson M.D. CC: Arlen Hillman MD; Hali Jerome MD PAGE 1 Signed Report Name: DANIEL PEGUERO : 1975 Age/S: 44 / F [id number] [address] Unit #: [id number] Loc: [place] [address] Phys: Hali Jerome MD Acct: [id number] Dis Date: Status: ADM IN PHONE #: [phone] Exam Date: 10/31/2020 0420 FAX #: Reason: COVID PNA EXAMS: CPT: [id number] XR CHEST 1 V [id number] Fluoro Time: DAP (Gy m2): AirKerma (mGy): (Continued) Technologist: Keyana Sun, RT(R)(CT) Trnscb Date/Time: 10/31/2020 (711) [id number] Orig Print D/T: S: 10/31/2020 (07) PAGE 2 Signed ReportGLUCOSE BEDSIDE [id number] 20:50:00 Test Item Value Reference Range Interpretation Comments GLUCOSE BEDSIDE TESTING (test code 223 mg/dL 70-110 H = GLUBED) GLUCOSE BEDSIDE [id number] 16:25:00 Test Item Value Reference Range Interpretation Comments GLUCOSE BEDSIDE TESTING (test code 259 mg/dL 70-110 H = GLUBED) GLUCOSE BEDSIDE [id number] 12:43:00 Test Item Value Reference Range Interpretation Comments GLUCOSE BEDSIDE TESTING (test code 202 mg/dL 70-110 H = GLUBED) GLUCOSE BEDSIDE [id number] 07:47:00 Test Item Value Reference Range Interpretation Comments GLUCOSE BEDSIDE TESTING (test code 170 mg/dL 70-110 H = GLUBED) CBC W/AUTO [id number] 03:39:00 Test Item Value Reference Range Interpretation Comments WHITE BLOOD CELL (test code = 6.4 K/mm3 3.5-11.0 N WBC) RED BLOOD CELL (test code = 4.92 M/mm3 4.70-6.10 N RBC) HEMOGLOBIN (test code = HGB) 13.0 G/DL 10.4-14.9 N HEMATOCRIT (test code = HCT) 41.8 % 31.5-44.1 N MEAN CELL VOLUME (test code = 85.0 Fl 84.5-98.6 N MCV) MEAN CELL HGB (test code = MCH) 26.4 pg 27.0-34.2 L MEAN CELL HGB CONCETRATION 31.1 G/DL 31.5-34.0 L (test code = MCHC) RED CELL DISTRIBUTION WIDTH 13.1 SD 11.5-14.5 N (test code = RDW) PLATELET COUNT (test code = 353 K/mm3 150-450 N PLT) MEAN PLATELET VOLUME (test code 9.50 fL 7.0-10.5 N = MPV) NEUTROPHIL % (test code = NT%) 83.2 % 40-76 H IMMATURE GRANULOCYTE % (test 3.1 % 0.0-5.0 N code = IG%) LYMPHOCYTE % (test code = LY%) 10.9 % 20.5-51.1 L MONOCYTE % (test code = MO%) 1.7 % 1.7-9.3 N EOSINOPHIL % (test code = EO%) 0.3 % 0.0-6.0 N BASOPHIL % (test code = BA%) 0.8 % 0.0-2.0 N NUCLEATED RBC % (test code = 0.0 /100WBC% 0.0-1.0 N NRBC%) NEUTROPHIL # (test code = NT#) 5.3 K/mm3 1.8-7.6 N IMMATURE GRANULOCYTE # (test 0.20 x10 3/uL 0.00-0.03 H code = IG#) LYMPHOCYTE # (test code = LY#) 0.7 K/mm3 0.6-3.2 N MONOCYTE # (test code = MO#) 0.1 K/mm3 0.3-1.1 L EOSINOPHIL # (test code = EO#) 0.0 K/mm3 0.0-0.4 N BASOPHIL # (test code = BA#) 0.1 K/mm3 0.0-0.1 N NUCLEATED RBC # (test code = 0.0 K/mm3 0.0-0.1 N NRBC#) MANUAL DIFF REQUIRED (test code NO DIFF/SCN CRITERIA = MDIFF) [id number] 03:34:00 Test Item Value Reference Range Interpretation Comments GLYCOSYLATED HEMOGLOBIN (HA1C) 8.5 % A1C 0.0-5.7 H (test code = GLYHGB) ESTIMATED AVERAGE GLUCOSE (test 197 MG/DLest code = EAG) C REACTIVE [id number] 03:31:00 Test Item Value Reference Range Interpretation Comments C REACTIVE PROTEIN (test code = 3.650 MG/DL 0.000-0.3 H CRP) BASIC METABOLIC [id number] 03:29:00 Test Item Value Reference Range Interpretation Comments SODIUM (test code = NA) 140 mmol/L 134-147 N POTASSIUM (test code = 3.9 mmol/L 3.4-5.0 N K) CHLORIDE (test code = 111 mmol/L 100-108 H CL) CARBON DIOXIDE (test 20 mmol/L 21-32 L code = CO2) ANION GAP (test code = 9.0 GAP calc 4.0-15.0 N GAP) GLUCOSE (test code = 231 MG/DL 70-110 H GLU) BLOOD UREA NITROGEN 9 MG/DL 7-18 N (test code = BUN) GLOMERULAR FILTRATION >=60 max estimate >60 RATE (test code = GFR) estGFR CREATININE (test code = 0.3 MG/DL 0.6-1.0 L CREAT) CALCIUM (test code = CA) 8.8 MG/DL 8.5-10.1 N [id number] 03:29:00 Test Item Value Reference Range Interpretation Comments FERRITIN (test code = DEVANG) 79.3 NG/ML 3.0-105.0 N CBC W/AUTO [id number] 03:29:00 Test Item Value Reference Range Interpretation Comments WHITE BLOOD CELL (test code = WBC) 6.4 K/mm3 3.5-11.0 N RED BLOOD CELL (test code = RBC) 4.92 M/mm3 4.70-6.10 N HEMOGLOBIN (test code = HGB) 13.0 G/DL 10.4-14.9 N HEMATOCRIT (test code = HCT) 41.8 % 31.5-44.1 N MEAN CELL VOLUME (test code = MCV) 85.0 Fl 84.5-98.6 N MEAN CELL HGB (test code = MCH) 26.4 pg 27.0-34.2 L MEAN CELL HGB CONCETRATION (test 31.1 G/DL 31.5-34.0 L code = MCHC) RED CELL DISTRIBUTION WIDTH (test SD 11.5-14.5 N code = RDW) PLATELET COUNT (test code = PLT) 353 K/mm3 150-450 N MEAN PLATELET VOLUME (test code = fL 7.0-10.5 N MPV) NEUTROPHIL % (test code = NT%) % 40-76 H IMMATURE GRANULOCYTE % (test code % 0.0-5.0 N = IG%) LYMPHOCYTE % (test code = LY%) % 20.5-51.1 L MONOCYTE % (test code = MO%) % 1.7-9.3 N EOSINOPHIL % (test code = EO%) % 0.0-6.0 N BASOPHIL % (test code = BA%) % 0.0-2.0 N NUCLEATED RBC % (test code = /100WBC% 0.0-1.0 N NRBC%) NEUTROPHIL # (test code = NT#) K/mm3 1.8-7.6 N IMMATURE GRANULOCYTE # (test code x10 3/uL 0.00-0.03 H = IG#) LYMPHOCYTE # (test code = LY#) K/mm3 0.6-3.2 N MONOCYTE # (test code = MO#) K/mm3 0.3-1.1 L EOSINOPHIL # (test code = EO#) K/mm3 0.0-0.4 N BASOPHIL # (test code = BA#) K/mm3 0.0-0.1 N NUCLEATED RBC # (test code = K/mm3 0.0-0.1 N NRBC#) MANUAL DIFF REQUIRED (test code = DIFF/SCN CRITERIA MDIFF) GLUCOSE BEDSIDE [id number] 03:06:00 Test Item Value Reference Range Interpretation Comments GLUCOSE BEDSIDE TESTING (test code 214 mg/dL 70-110 H = GLUBED)
[2023-01-02 17:36] LABS: Urine Blood Trace-intact (Negative); Urine Glucose 2+ (Negative); Urine Protein Negative (Negative); Urine pH 6.5 (5.0-7.0)
[2023-01-02 18:13] LABS: Urine Bacteria <20 /HPF (<20); Urine RBC None Seen /HPF (None Seen)
[2023-01-02] MEDS ORDERED: DIPHENHYDRAMINE 50 MG/ML VIAL ONE (18:14)
[2023-01-02] MEDS ORDERED: FAMOTIDINE 20 MG/2 ML VIAL IV ONE (18:14)
[2023-01-02] MEDS ORDERED: NA CHLORIDE 0.9% 1,000 ML ONE (18:14)
[2023-01-02 18:19] LABS: Hematocrit 43.6 % (36.0-45.0); Lymphocytes % 29.9 % (15.3-44.8); MCV 85.7 fL (80-100); MPV 8.9 fL (7.6-11.3); RBC Red Blood Cell Count 5.09 M/uL (3.86-4.86)
[2023-01-02 18:40] LABS: Albumin 3.4 g/dL (3.4-5.0); Bilirubin Total 0.2 mg/dL (0.2-1.0)
[2023-01-02 18:41] LABS: Potassium 3.8 mmol/L (3.5-5.1)
[2023-01-02] MEDS ORDERED: HYDROCODONE/APAP 10/325 TAB ONE (19:34)
--- NOTE | 2023-01-02 19:37 | EDPHYS ---
[facility] Name: Shruti Ramon Age: 47 yrs Sex: Female : 1975 Arrival Date: 01/02/2023 Time: 16:17 Bed 11 Private MD: ED Physician Dev Aleman HPI: 01/02 17:19 This 47 yrs old Female presents to ER via Ambulatory with complaints of pm1 Allergic Reaction. 17:19 The patient presents with Swelling to bilateral cheeks and itchiness, scratchiness and pm1 swelling to bilateral upper eyelids after taking cipro for the second time. 17:19 Onset: The symptoms/episode began/occurred today. Associated signs and symptoms: pm1 Pertinent negatives: chest pain, nausea, shortness of breath, vomiting, sore throat. Possible causes: antibiotics, Cipro. At home the patient or guardian has treated the symptoms with nothing. Severity of symptoms: in the emergency department the symptoms are worse. The patient has not experienced similar symptoms in the past. The patient has been recently seen by a physician: the patient's primary care provider, with different complaint(s), and apparently was diagnosed with UTI, was given a prescription for antibiotics. Historical: - Allergies: 16:22 "unknown cholesterol medication"; ll1 - PMHx: 16:22 Hypercholesterolemia; ll1 16:26 Diabetes mellitus; Hypothyroidism; ll1 - PSHx: 16:26 section; Cholecystectomy; ll1 - Immunization history:: Client reports receiving the 2nd dose of the Covid vaccine. - Social history:: Smoking status: Patient denies any tobacco usage or history of. ROS: 17:19 Constitutional: Negative for fever, chills, and weight loss. pm1 17:19 Neck: Negative for injury, pain, and swelling, Cardiovascular: Negative for chest pain, palpitations, and edema, Respiratory: Negative for shortness of breath, cough, wheezing, and pleuritic chest pain, Abdomen/GI: Negative for abdominal pain, nausea, vomiting, diarrhea, and constipation, MS/Extremity: Negative for injury and deformity. 17:19 Neuro: Negative for headache, weakness, numbness, tingling, and seizure. 17:19 Eyes: Positive for itching, bilateral eyelid swelling. 17:19 ENT: Negative for sore throat, difficulty swallowing, difficulty handling secretions, hoarseness. 17:19 Skin: Positive for rash, of the right cheek and left cheek. 17:19 All other systems are negative. Exam: 17:19 Constitutional: This is a well developed, well nourished patient who is awake, alert, pm1 and in no acute distress. Head/Face: Normocephalic, atraumatic. 17:19 Eyes: Extraocular movements: no acute changes, Conjunctiva: injected, bilaterally, Lids and lashes: no acute changes. 17:19 Cardiovascular: Exam negative for acute changes, Rate: normal, Rhythm: regular, Pulses: no pulse deficits are appreciated. 17:19 Respiratory: Exam negative for acute changes, respiratory distress, shortness of breath. Vital Signs: 16:23 BP 151 / 71; Pulse 80; Resp 18; Temp 97.3; Pulse Ox 100% ; Weight 128.37 kg; Height 5 ll1 ft. 8 in. (172.72 cm); Pain 10/10; 20:14 BP 142 / 72; Pulse 82; Resp 16; Pulse Ox 99% on R/A; ll3 16:23 Body Mass Index 43.03 (128.37 kg, 172.72 cm) ll1 MDM: 16:56 Patient medically screened. pm1 19:35 Data reviewed: vital signs. pm1 19:35 Differential diagnosis: angioedema, urticaria, UTI, pyelonephritis, low back pain. pm1 19:36 Counseling: I had a detailed discussion with the patient and/or guardian regarding: the pm1 historical points, exam findings, and any diagnostic results supporting the discharge/admit diagnosis, lab results, the need for outpatient follow up, to return to the emergency department if symptoms worsen or persist or if there are any questions or concerns that arise at home. 01/02 17:19 Order name: CBC with Diff; Complete Time: 18:38 pm1 01/02 17:19 Order name: CMP; Complete Time: 18:50 pm1 01/02 17:19 Order name: Urine Microscopic Only; Complete Time: 18:38 pm1 01/02 17:37 Order name: Urine Dipstick-Ancillary; Complete Time: 17:38 EDMS 01/02 18:17 Order name: Urine Culture EDWV 01/02 17:19 Order name: IV Saline Lock; Complete Time: 18:08 pm1 01/02 17:19 Order name: Urine Dipstick-Ancillary (obtain specimen); Complete Time: 17:35 pm1 Administered Medications: 18:14 Drug: Benadryl (diphenhydrAMINE) 25 mg Route: IVP; Site: right antecubital; ss 18:15 Drug: Pepcid (famotidine) 20 mg Route: IVP; Site: right antecubital; ss 18:19 Drug: NS 0.9% 1000 ml Route: IV; Rate: 1000 ml; Site: right antecubital; ss 19:35 Drug: [place] (HYDROcodone-acetaminophen) 10 mg-325 mg 1 tabs Route: PO; ll3 20:14 Drug: Rocephin (cefTRIAXone) 1 grams Route: IV; Rate: calculated rate; Site: right ll3 antecubital; Disposition Summary: 01/02/23 19:37 Discharge Ordered Location: Home pm1 Problem: new pm1 Symptoms: have improved pm1 Condition: Stable pm1 Diagnosis - UTI/ Urinary tract infection, site not specified pm1 - Urticaria, unspecified pm1 Followup: pm1 - With: Emergency Department - When: As needed - Reason: Worsening of condition Followup: pm1 - With: Private Physician - When: 2 - 3 days - Reason: Recheck today's complaints, Continuance of care, Re-evaluation by your physician Discharge Instructions: - Discharge Summary Sheet pm1 - Hives pm1 - Urinary Tract Infection, Adult pm1 Forms: - Medication Reconciliation Form pm1 - Thank You Letter pm1 - Antibiotic Education pm1 - Prescription Opioid Use pm1 Prescriptions: - Benadryl 25 mg Oral Capsule - take 1 capsule by ORAL route every 6 hours As needed; 30 tablet; Refills: 0, pm1 Product Selection Permitted - Pepcid 20 mg Oral Tablet - take 1 tablet by ORAL route every 12 hours for 10 days; 20 tablet; Refills: 0, pm1 Product Selection Permitted - Bactrim DS 800-160 mg Oral Tablet - take 1 tablet by ORAL route every 12 hours for 10 days; 20 tablet; Refills: 0, pm1 Product Selection Permitted - Tylenol-Codeine #3 300 mg-30 mg Oral - take 2 tablet by ORAL route every 6 hours As needed; 20 tablet; Refills: 0, pm1 Product Selection Permitted Signatures: Dispatcher [employer] Verito Fine RN RN ss Miki Mark, TUBE WINDER HAND TUBE WINDER HAND pm1 Swati Wynn, RN RN ll1 Kleber iFgueroa, RN RN ll3
--- NOTE | 2023-01-02 19:37 | ER ---
Nurse's Notes [facility] Name: Shruti Ramon Age: 47 yrs Sex: Female : 1975 Arrival Date: 01/02/2023 Time: 16:17 Bed 11 Private MD: Diagnosis: UTI/ Urinary tract infection, site not specified;Urticaria, unspecified Presentation: 01/02 16:23 Chief complaint: Patient states: Started taking Cipro for UTI last night. Started to ll1 feel shaky, groggy, SOB, facial itching, eyes itching, redness to cheeks for 1 days. Still has low back pain. Coronavirus screen: Vaccine status: Patient reports receiving the 2nd dose of the covid vaccine. Client denies travel out of the [place] in the last 14 days. At this time, the client does not indicate any symptoms associated with coronavirus-19. Ebola Screen: Patient denies travel to an Ebola-affected area in the 21 days before illness onset. Onset: The symptoms/episode began/occurred this morning. Anaphylaxis evaluation, no signs or symptoms of anaphylaxis were noted. Initial Sepsis Screen: Does the patient meet any 2 criteria? No. Patient's initial sepsis screen is negative. Does the patient have a suspected source of infection? Yes: Dysuria/Frequency/Urgency/UTI. Risk Assessment: Do you want to hurt yourself or someone else? Patient reports no desire to harm self or others. Onset of symptoms was January 02, 2023. 16:23 Method Of Arrival: Ambulatory ll1 16:23 Acuity: OLINDA 3 ll1 Historical: - Allergies: 16:22 "unknown cholesterol medication"; ll1 - PMHx: 16:22 Hypercholesterolemia; ll1 16:26 Diabetes mellitus; Hypothyroidism; ll1 - PSHx: 16:26 section; Cholecystectomy; ll1 - Immunization history:: Client reports receiving the 2nd dose of the Covid vaccine. - Social history:: Smoking status: Patient denies any tobacco usage or history of. Screenin:15 Abuse screen: Denies threats or abuse. Denies injuries from another. Nutritional ll3 screening: No deficits noted. Tuberculosis screening: No symptoms or risk factors identified. 20:16 [facility] ED Fall Risk Assessment (Adult) History of falling in the last 3 months, ll3 including since admission No falls in past 3 months (0 pts). Assessment: 20:14 General: Appears uncomfortable, Behavior is calm, cooperative. Pain: Complains of pain ll3 in back Pain does not radiate. Pain currently is 10 out of 10 on a pain scale. Neuro: Level of Consciousness is awake, alert, obeys commands, Oriented to person, place, time, situation. Respiratory: Airway is patent Respiratory effort is even, unlabored, Respiratory pattern is regular, symmetrical. Vital Signs: 16:23 BP 151 / 71; Pulse 80; Resp 18; Temp 97.3; Pulse Ox 100% ; Weight 128.37 kg; Height 5 ll1 ft. 8 in. (172.72 cm); Pain 10/10; 20:14 BP 142 / 72; Pulse 82; Resp 16; Pulse Ox 99% on R/A; ll3 16:23 Body Mass Index 43.03 (128.37 kg, 172.72 cm) ll1 ED Course: 16:17 Patient arrived in ED. rg4 16:26 Triage completed. ll1 16:55 Miki Mark NP is PHCP. pm1 16:55 Dev Aleman MD is Attending Physician. pm1 16:55 Arm band placed on Patient placed in an exam room, on a stretcher. ll1 18:08 Verito Mares, GABE is Primary Nurse. ss 18:08 Inserted saline lock: 22 gauge in right antecubital area, using aseptic technique. ss Blood collected. 20:15 Patient has correct armband on for positive identification. Bed in low position. Call ll3 light in reach. Side rails up X 1. 20:15 No provider procedures requiring assistance completed. IV discontinued, intact, ll3 bleeding controlled, No redness/swelling at site. Pressure dressing applied. Administered Medications: 18:14 Drug: Benadryl (diphenhydrAMINE) 25 mg Route: IVP; Site: right antecubital; ss 18:15 Drug: Pepcid (famotidine) 20 mg Route: IVP; Site: right antecubital; ss 18:19 Drug: NS 0.9% 1000 ml Route: IV; Rate: 1000 ml; Site: right antecubital; ss 19:35 Drug: [place] (HYDROcodone-acetaminophen) 10 mg-325 mg 1 tabs Route: PO; ll3 20:14 Drug: Rocephin (cefTRIAXone) 1 grams Route: IV; Rate: calculated rate; Site: right ll3 antecubital; Medication: 20:16 VIS not applicable for this client. ll3 Outcome: 19:37 Discharge ordered by . pm1 20:15 Discharged to home ambulatory, with family, with significant other. ll3 20:15 Condition: stable 20:15 Discharge instructions given to patient, family, Instructed on discharge instructions, follow up and referral plans. medication usage, Demonstrated understanding of instructions, follow-up care, medications, Prescriptions given X 3. 20:18 Patient left the ED. ll3 Signatures: Verito Mares, RN RN ss Miki Mark, JANI FOOT WORKER pm1 [place] rg4 Swati Wynn RN RN ll1 Kleber Figueroa RN RN ll3
[2023-01-02] MEDS ORDERED: CEFTRIAXONE 1000 MG/VIAL ONE (19:58)
[2023-01-02 20:40] VITALS: TEMP 97.3
[2023-01-02 20:41] VITALS: BP 142/72; O2SAT 99
== END 2023-01-02 20:18 | disposition home or self-care (01) ==
LOC: ER 16:13
DX: L50.9 Urticaria, unspecified (principal); N39.0 Urinary tract infection, site not specified; E11.9 Type 2 diabetes mellitus without complications; E78.00 Pure hypercholesterolemia, unspecified
CPT/HCPCS: 87088; 85025; 87086; 36415; 80053; J1200; J7030; 81003; 81015